=== PATIENT | male | born 1940 | race Caucasian/White ===

== ENCOUNTER 2017-12-06 09:40 | Emergency (ER) | payer OTHER ==
[~2017-12-06] VITALS: Ht 180.3 cm; Wt 86.2 kg
[~2017-12-06 09:40] MED LIST: HYZAAR 100-251 UDTAB PO; PREVACID30 MG PO; SYNTHROID112 MCG PO; ZOCOR40 MG PO
== END 2017-12-06 12:41 | disposition home or self-care (01) ==
LOC: ER 09:40
DX: R07.89 Other chest pain (principal)

== ENCOUNTER 2023-09-27 09:39 | Emergency (ER) | payer OTHER ==
[~2023-09-27] VITALS: Ht 175.3 cm; Wt 82.6 kg
[2023-09-27] MEDS ORDERED: TOPROL XL25 M1 PO (10:25)
[2023-09-27] MEDS ORDERED: JANTOVEN5 MG PO (10:25)
[2023-09-27] MEDS ORDERED: OMEPRAZOLE MAGN20 MG PO (10:26)
[2023-09-27 13:44] LABS: HEMATOCRIT 38.1 % (39.0-48.0); HEMOGLOBIN 12.8 g/dL (13-16.00); MEAN CELL VOLUME 91.5 fL (80.0-100.00); MEAN CORPUSCULAR HEMOGLOBIN 30.7 pg (27.00-32.0); MEAN CORPUSCULAR HGB CONC 33.6 g/dl (32.0-36.0); PLATELET COUNT 186 K/uL (150-450); RED BLOOD COUNT 4.17 M/uL (4.00-6.00); RED CELL DISTRIBUTION WIDTH 13.9 % (11.5-14.5)
[2023-09-27 14:03] LABS: PH,URINE 5.5 (5.0-8.0); URINE APPEARANCE Clear; URINE BILIRRUBIN Negative (NEGATIVE); URINE BLOOD Negative; URINE COLOR Yellow; URINE GLUCOSE Negative (NEGATIVE); URINE LEUKOCYTE Negative; URINE NITRATE Negative; URINE PROTEIN Negative (NEGATIVE)
[2023-09-27 14:07] LABS: URINE BACTERIA 114.6 uL (0.0-1933); URINE EPITHELIAL CELLS 1.6 uL (0.0-38.8); URINE RBC 3.8 uL (0.0-20.8)
[2023-09-27 14:22] LABS: ALBUMIN 3.4 gm/dL (3.4-5.0); BILIRUBIN TOTAL 0.5 mg/dL (0.3-1.2); CALCIUM 9.3 mg/dL (8.5-10.1); CREATININE SERUM 1.04 mg/dL (0.70-1.30); GFR 68.2; GLOBULINA 4.8 G/DL (2.4-3.5); POTASSIUM 3.88 mEq/L (3.5-5.1); TOTAL PROTEIN 8.2 gm/dL (6.4-8.2)
[2023-09-27 14:52] LABS: URINE WBC 1.2 uL (0.0-23.2)
== END 2023-09-27 18:41 | disposition home or self-care (01) ==
LOC: ER 09:39
PROVIDERS: Emergency Medicine
DX: K57.32 Diverticulitis of large intestine without perforation or abscess without bleeding (principal); R10.2 Pelvic and perineal pain; I48.91 Unspecified atrial fibrillation; E03.9 Hypothyroidism, unspecified
CPT/HCPCS: 36415; 74177; 96365; 99284; J3490; Q9965

== ENCOUNTER 2025-05-03 09:29 | Outpatient (CLI) | payer OTHER ==
[~2025-05-03 09:29] MED LIST changes: +JANTOVEN5 MG PO; +OMEPRAZOLE MAGN20 MG PO; +TOPROL XL25 M1 PO
== END 2025-05-03 09:42 | disposition home or self-care (01) ==
LOC: TOM 09:29
DX: K40.91 Unilateral inguinal hernia, without obstruction or gangrene, recurrent (principal)